=== PATIENT | male | born 1990 ===

== ENCOUNTER 2017-07-10 07:21 | Day surgery (SDC) | payer OTHER ==
[2017-07-10] VITALS (11 sets, daily range): BP systolic 106–145; BP diastolic 60–90
[~2017-07-10] VITALS: Ht 167.6 cm; Wt 104.3 kg
[~2017-07-10 07:21] MED LIST: BENZONATATE200 MG ORAL; ceFAZolin 1gm in D5W 55ml IVPB ONE; celeBREX 200mg Cap **SURGERY PATIENTS ONLY ORAL ONE; oxyCONTIN 20mg tab ORAL ONE
[2017-07-10] MEDS ORDERED: Bupivacaine 0.25% Inj 30ml INJ ONE (07:32)
[2017-07-10] MEDS ORDERED: Kenalog-40 1ml Vial ONE (07:33)
[2017-07-10] MEDS ORDERED: Lidocaine 1% 10mg/ml/Epi 0.005mg/ml 30ml vial INJ ONE (07:33)
[2017-07-10] MEDS ORDERED: Ketorolac 30mg Inj ONE ×2 (07:33→10:00)
--- NOTE | 2017-07-10 09:10 | Pre-Procedure Note/Attestation ---
Pre-Procedure Note/Attestation Complete Prior to Procedure Planned Procedure: right Procedure Narrative: knee arthroscopy, medial menisectomy Indications for Procedure Pre-Operative Diagnosis: right knee medial meniscus tear Attestation I attest that I discussed the nature of the procedure; its benefits; risks and complications; and alternatives (and the risks and benefits of such alternatives ), prior to the procedure, with the patient (or the patient's legal ambulatory service representative). I attest that, if there was a reasonable possibility of needing a blood transfusion, the patient (or the patient's legal ambulatory service representative) was given the [facility] standardized written summary, pursuant to the [place] Blood Safety Act ([place] Health and Safety Code # 1645, as amended). I attest that I re-evaluated the patient just prior to the surgery and that there has been no change in the patient's H&P, except as documented below: JOSH MOSHER Jul 10, 2017 09:10
--- NOTE | 2017-07-10 09:11 | Operative Note - PDOC ---
Operative Note Operative Note Pre-op Diagnosis: right knee medial meniscus tear Procedure: right knee arthroscopy, medial mensectomy Post-op Diagnosis: same as pre-op plus Operative Findings: consistent w/pre-op dx studies Anesthesia: MAC Specimen: none Complications: none Condition: stable Estimated Blood Loss: none Implant(s) used?: No JOSH MOSHER Jul 10, 2017 09:10
[2017-07-10] MEDS ORDERED: Propofol 200mg/20ml IV ONE (09:41)
[2017-07-10] MEDS ORDERED: Morphine Sulfate PF 10 ML ONE (09:41)
[2017-07-10] MEDS ORDERED: fentaNYL 100 mcg/2 mL IV ONE (10:00)
[2017-07-10] MEDS ORDERED: NS Irrig 1000ml ONE (10:00)
[2017-07-10] MEDS ORDERED: LR 1000ml ONE (10:00)
[2017-07-10] MEDS ORDERED: Midazolam 2mg/2ml Inj ONE (10:00)
[2017-07-10] MEDS ORDERED: Sterile Water Irrig 1000ml IRRIG ONE (10:00)
[2017-07-10] MEDS ORDERED: LR 1000ml 1,000 ML IVLG SCH (10:47)
--- NOTE | 2017-07-10 10:47 | Anethesia Preoperative Eval ---
Anesthesia Pre-op PMH/ROS General Date of Evaluation: Jul 10, 2017 Time of Evaluation: 10:08 Anesthesiologist: Alton ASA Score: ASA 2 Mallampati Score Class I : Soft palate, uvula, fauces, pillars visible Class II: Soft palate, uvula, fauces visible Class III: Soft palate, base of uvula visible Class IV: Only hard plate visible Mallampati Classification: Class II Surgeon: Diego Diagnosis: R knee pain Surgical Procedure: R knee scope Anesthesia History: none Family History: no anesthesia problems Allergies: Coded Allergies: No Known Allergies (Unverified , 07/09/17) Medications: see eMAR Past Medical History Cardiovascular: Denies: HTN, CAD, [place], valve dz, arrhythmia, other Pulmonary: Denies: asthma, COPD, JULIANA, other Gastrointestinal/Genitourinary: Reports: GERD - mild, Denies: CRI, ESRD, other Neurologic/Psychiatric: Denies: dementia, CVA, depression/anxiety, TIA, other Endocrine: Denies: DM, hypothyroidism, steroids, other HEENT: Denies: cataract (L), cataract (R), glaucoma, [place] (L), [place] (R), other Hematology/Immune: Denies: anemia, DVT, bleeding disorder, other Musculoskeletal/Integumentary: Denies: OA, RA, DJD, DDD, edema, other Other: obesity PMH Narrative: as above PSxH Narrative: none Anesthesia Pre-op Phys. Exam Physician Exam Last Vital Signs Date Time Temp Pulse Resp B/P (MAP) Pulse Ox O2 Delivery O2 Flow Rate FiO2 07/10/17 08:00 98.1 71 18 132/83 97 Room Air 98.1 Constitutional: NAD Neurologic: CN 2-12 intact Cardiovascular: RRR, no M/R/G Respiratory: CTA Gastrointestinal: other - obesity Airway Exam Mallampati Score: Class II MO: full Neck: flexible ROM: full Teeth: intact Dentures: no upper, no lower Anesthesia Pre-op A/P Labs see chart Studies Pre-op Studies: EKG - NSR Risk Assessment & Plan Assessment: ASA 2 Plan: GA wth LMA Status Change Before Surgery: No Pre-Antibiotics Drug: Ancef 2gr. Given Within 1 Hr of Incision: Yes Time Given: 10:35 ADRIANO CAVANAUGH M.D. Jul 10, 2017 10:46
[2017-07-10] MEDS ORDERED: NS Irrig 4000ml IRRIG ONE (10:48)
[2017-07-10] MEDS ORDERED: Duramorph PF 10mg/10ml amp EPIDUR ONE (10:50)
[2017-07-10] MEDS ORDERED: Hydromorphone 0.5mg/0.5ml inj IVP PRN (11:00)
[2017-07-10] MEDS ORDERED: Ketorolac 30mg Inj IV PRN (11:00)
[2017-07-10] MEDS ORDERED: Midazolam 2mg/2ml Inj IVP PRN (11:00)
[2017-07-10] MEDS ORDERED: Meperidine 50mg/ml Inj(FOR RIGORS ONLY) IV PRN (11:00)
[2017-07-10] MEDS ORDERED: DiphenhydrAMINE 50mg/ml Inj IVP PRN (11:00)
--- NOTE | 2017-07-10 11:05 | Immediate Post-Op Evaluation ---
Immediate Post-Op Evalulation Immediate Post-Op Evalulation Procedure: R knee arthroscopy meniscectomy Date of Evaluation: Jul 10, 2017 Time of Evaluation: 11:04 IV Fluids: 1000 Blood Products: none Estimated Blood Loss: min Urinary Output: none Blood Pressure Systolic: 113 Blood Pressure Diastolic: 68 Pulse Rate: 57 Respiratory Rate: 20 O2 Sat by Pulse Oximetry: 99 Temperature (Fahrenheit): 97.6 Nausea: No Vomiting: No Complications none Patient Status: reacts, patent, none Hydration Status: adequate ADRIANO CAVANAUGH M.D. Jul 10, 2017 11:05
--- NOTE | 2017-07-10 13:36 | 48 Hour Post Anesthesia Eval ---
Post Anesthesia Evaluation Procedure: R knee arthroscopy meniscectomy Date of Evaluation: Jul 10, 2017 Time of Evaluation: 13:34 Blood Pressure Systolic: 132 0: 75 Pulse Rate: 64 Respiratory Rate: 20 Temperature (Fahrenheit): 97.6 O2 Sat by Pulse Oximetry: 98 Airway: patent Nausea: No Vomiting: No Pain Intensity: 2 Hydration Status: adequate Cardiopulmonary Status: stable Mental Status/LOC: patient returned to baseline Follow-up Care/Observations: n/a Post-Anesthesia Complications: none Follow-up care needed: ready to discharge ADRIANO CAVANAUGH M.D. Jul 10, 2017 13:35
[2017-07-10] MEDS ORDERED: Tylenol #3 tab (300mg/30mg) ORAL PRN (16:01)
[2017-07-10] MEDS ORDERED: Norco 5mg/325mg tab ORAL PRN (16:01)
[2017-07-10] MEDS ORDERED: D5 1/2NS 1,000 ML IV SCH (16:01)
[2017-07-10] MEDS ORDERED: HYDROmorphone 1mg/ml Carpuject SUBQ PRN (16:01)
--- NOTE | 2017-07-10 19:30 | Operative Note - Dictated ---
DATE OF OPERATION: 07/10/2017 PREOPERATIVE DIAGNOSIS: Right knee medial meniscus tear. POSTOPERATIVE DIAGNOSES: 1. Right medial meniscus tear. 2. Hypertrophic synovial tissue of medial, lateral, and patellofemoral compartment. 3. Grade 1 chondral damage, inferior pole of patellar facet. PROCEDURES: 1. Right knee arthroscopic partial medial meniscectomy. 2. Synovectomy of medial, lateral, and patellofemoral compartment. SURGEON: Ravi Cortez M.D. ANESTHESIA: MAC with local. INDICATION FOR PROCEDURE: The patient is a pleasant gentleman with progressive right knee pain. He had MRI, which showed a tear of the posterior horn of medial meniscus. Given that he failed conservative treatment, he elected to undergo right knee arthroscopic medial meniscectomy. Risks, limitations, expectations, complications of procedure were discussed in detail. All questions addressed. DESCRIPTION OF PROCEDURE: Informed consent was obtained. The patient was brought to the operating room and placed supine under monitored anesthesia control. Tourniquet was applied to the right proximal thigh. Right leg was prepped and draped in sterile manner. Under sterile conditions, 20 mL of 0.25% Marcaine was injected in the right knee. Portal sites were injected with 1% lidocaine with epinephrine. Inferolateral stab incision was then made after the tourniquet was inflated. Trocar was introduced. Systematic tour of the knee was performed. It was difficult to visualize patellofemoral compartment secondary to hypertrophic fat pad and synovial tissue. Medial gutter was free of meniscal chondral damage. Medial compartment was entered. The meniscus was probed and there was peripheral tear in the junction of the posterior horn extending to the middle body. Partial meniscectomy using combination of biter and shaver was performed down to stable rim of tissue. Once that was done, the hypertrophic synovial tissue and fat pad was excised to better visualize the anterior portion of the medial compartment, intercondylar notch, and lateral compartment. ACL was probed and noted to be intact. Lateral compartment was entered and free of any meniscal chondral damage. Camera was repositioned in the patellofemoral compartment and an excision of the patellar fat pad was performed to better visualize the patellofemoral compartment. No significant chondral damage. The patella tracked in its groove. There was may be some mild grade 1 chondral damage in the inferior pole of the patella. At this point, the instruments were removed. Portal sites were closed with 3-0 Monocryl sutures. Intraarticular injection containing 0.25% Marcaine with epinephrine, 20 mg of Kenalog, 5 cc Duramorph, 0.25% Marcaine was slowly injected into the knee. The patient was awoken and taken to recovery room with stable signs. ESTIMATED BLOOD LOSS: None. COMPLICATIONS: None. SPECIMENS: None. IMPLANTS: None. Ravi Cortez M.D. DR: Susana JOB#: [id number] CC: STELLA
== END 2017-07-10 12:20 | disposition home or self-care (01) ==
LOC: SUR 07:21
DX: S83.241A Other tear of medial meniscus, current injury, right knee, initial encounter (principal); M67.261 Synovial hypertrophy, not elsewhere classified, right lower leg; M24.10 Other articular cartilage disorders, unspecified site; V49.9XXA Car occupant (driver) (passenger) injured in unspecified traffic accident, initial encounter; Y93.9 Activity, unspecified; Y92.9 Unspecified place or not applicable; K21.9 Gastro-esophageal reflux disease without esophagitis; E66.9 Obesity, unspecified; Z68.37 Body mass index [BMI] 37.0-37.9, adult
CPT/HCPCS: 29876; 29881; 97161; J0690; J1885; J2250; J2274; J2405; J2704; J3010; J3301; J3490; J7120; 94003; 94150